=== PATIENT | male | born 1945 | race Caucasian/White ===

== ENCOUNTER 2017-02-17 08:29 | Outpatient (CLI) | payer MEDICARE, OTHER ==
[2017-02-17 09:24] LABS: eGFR (African) > 60; eGFR (Non-African) > 60
== END 2017-02-17 08:30 ==
LOC: LAB 08:29
PROVIDERS: ATTEND Family Medicine
DX: E11.9 Type 2 diabetes mellitus without complications (principal)
CPT/HCPCS: 36415; 80053; 83036

== ENCOUNTER 2017-09-19 10:20 | Outpatient (CLI) | payer MEDICARE, OTHER ==
[2017-09-19 11:05] LABS: eGFR (African) > 60; eGFR (Non-African) > 60
== END 2017-09-19 10:21 ==
LOC: LAB 10:20
PROVIDERS: ATTEND Family Medicine
DX: E11.9 Type 2 diabetes mellitus without complications (principal); E78.5 Hyperlipidemia, unspecified
CPT/HCPCS: 36415; 80053; 83036; 84443

== ENCOUNTER 2018-03-13 09:04 | Outpatient (CLI) | payer MEDICARE, OTHER ==
[2018-03-13 16:41] LABS: TOTAL PROTEIN 7.2 g/dL (6.0-8.5)
== END 2018-03-13 09:06 ==
LOC: LAB 09:04
PROVIDERS: ATTEND Family Medicine
DX: E11.9 Type 2 diabetes mellitus without complications (principal); E78.5 Hyperlipidemia, unspecified; E03.9 Hypothyroidism, unspecified; R50.9 Fever, unspecified
CPT/HCPCS: 36415; 80053; 80061; 82043; 83036; 84443; 86618; 86666; 86757

== ENCOUNTER 2018-09-27 09:24 | Outpatient (CLI) | payer MEDICARE, OTHER ==
[2018-09-27 09:57] LABS: eGFR (Non-African) > 60
== END 2018-09-27 09:25 ==
LOC: LAB 09:24
PROVIDERS: ATTEND Family Medicine
DX: E11.9 Type 2 diabetes mellitus without complications (principal)
CPT/HCPCS: 36415; 80053; 83036

== ENCOUNTER 2019-05-12 19:42 | Emergency (ER) | payer MEDICARE, OTHER ==
--- NOTE | 2019-05-12 20:33 | ED Physician Documentation ---
Syncope/Near Syncope - HISTORIAN Historian: patient - HPI Stated Complaint: Syncope Chief Complaint: Syncope Additional Information: Patient presents to ED with complaints of syncope today around 1300. Patient left his house after breakfast at 1000 to [employer]. Around 1300 patient states he think he passed out. He does not remember exactly what happened but realized he was bleeding and the tractor had went through the ditch. He had no symptoms leading up to the event. Patient reports he continued to [employer] until around 1630. Upon arrival to home his checked his blood sugar and it was 155. He ate dinner and began to have right flank pain so his made him come to the ER. He is diabetic and take metformin and glimepride daily. He is not on blood thinners. Witnessed: No Position at Time of Episode: sitting (on tractor) Symptoms Prior to Episode: none Character of Events(s): lost consciousness Duration of Loss of Consciousness: brief Symptoms after Event: breathing stopped, other (none) Location of Injury: head (left eye and mouth contusion) Associated Symptoms: feels back to normal, other (right flank pain) - ROS CONST: denies: fever EYES/ENT: none GI/: denies: diarrhea MS/SKIN/LYMPH: denies: joint pain NEURO/PSYCH: denies: confusion - PAST HX Cardiac Disease: none PE Risk Factors: none Other History: diabetes Type 2 Surgeries/Procedures: none Allergies/Adverse Reactions: Allergies Allergy/AdvReac Type Severity Reaction Status Date / Time No Known Drug Allergies Allergy Verified 05/12/19 20:23 - SOCIAL HX Smoking History: non-smoker Alcohol Use: none Drug Use: none - FAMILY HX Family History: none - VITAL SIGNS Vital Signs: Vital Signs Temp Pulse Resp BP Pulse Ox 99.8 F H 88 22 125/56 97 05/12/19 19:43 05/12/19 19:43 05/12/19 19:43 05/12/19 19:43 05/12/19 19:43 - REVIEWED ASSESSMENTS Nursing Assessment Reviewed: Yes Vitals Reviewed: Yes Progress - EKG/XRAY/CT EKG: NSR Comments: [address] elevation/changes ED Results Lab/Radiology - Lab Results Lab Results: Lab Results 05/12/19 05/12/19 05/12/19 20:50 20:50 20:50 WBC RBC Hgb Hct MCV MCH MCHC RDW Plt Count Neut % (Auto) Lymph % (Auto) Collier % (Auto) Eos % (Auto) Baso % (Auto) Neut # (Auto) Lymph # (Auto) Collier # (Auto) Eos # (Auto) Baso # (Auto) Sodium 140 mmol/L mmol/L (137-145) Potassium 4.4 mmol/L mmol/L (3.5-5.1) Chloride 103 mmol/L mmol/L (98-107) Carbon Dioxide 27 mmol/L mmol/L (22-30) BUN 20 mg/dL mg/dL (9-20) Creatinine 1.08 mg/dL mg/dL (0.66-1.25) Estimated Creat Clear 69 Est GFR ( Amer) > 60 (60 - ) Est GFR (Non-Af Amer) > 60 (60 - ) Glucose 165 mg/dL H mg/dL (74-106) Calcium 9.4 mg/dL mg/dL (8.4-10.2) Total Bilirubin 0.5 mg/dL mg/dL (0.2-1.3) AST 51 U/L H U/L (15-46) ALT 22 U/L U/L (13-69) Alkaline Phosphatase 46 U/L U/L (38-126) Troponin I < 0.012 ng/mL L ng/mL (0.012-0.034) NT-Pro-B Natriuret Pep 152.3 pg/mL H pg/mL (11.1-125.0) Total Protein 7.1 g/dL g/dL (6.3-8.2) Albumin 4.4 g/dL g/dL (3.5-5.0) TSH < 0.010 mIU/l L mIU/l (0.465-4.685) 05/12/19 20:50 WBC 11.10 K/ul K/ul (4.00-12.00) RBC 4.13 M/ul M/ul (3.90-5.20) Hgb 12.1 g/dL g/dL (12.0-18.0) Hct 35.8 % L % (37.0-53.0) MCV 87.0 fl fl (80.0-100.0) MCH 29.3 pg pg (28.0-34.0) MCHC 33.9 g/dL g/dL (30.0-36.0) RDW 12.8 % % (11.3-14.3) Plt Count 318 K/mm3 K/mm3 (130-400) Neut % (Auto) 78.0 % % (39.0-79.0) Lymph % (Auto) 13.3 % L % (16.0-50.0) Collier % (Auto) 7.4 % % (0.0-11.0) Eos % (Auto) 0.9 % % (0.0-6.8) Baso % (Auto) 0.4 % % (0.0-1.5) Neut # (Auto) 8.7 # k/uL H # k/uL (1.4-7.7) Lymph # (Auto) 1.5 # k/uL # k/uL (0.6-4.0) Collier # (Auto) 0.8 # k/uL # k/uL (0.0-0.9) Eos # (Auto) 0.1 # k/uL # k/uL (0.0-0.6) Baso # (Auto) 0.0 # k/uL # k/uL (0.0-0.5) Sodium Potassium Chloride Carbon Dioxide BUN Creatinine Estimated Creat Clear Est GFR ( Amer) Est GFR (Non-Af Amer) Glucose Calcium Total Bilirubin AST ALT Alkaline Phosphatase Troponin I NT-Pro-B Natriuret Pep Total Protein Albumin TSH - Radiology Radiology Impressions: Report Submission Date: May 12, 2019 9:46:45 PM CDT Patient Study Name: MINA BARONE Date: May 12, 2019 8:39:10 PM CDT Modality Type: DX Gender: M Description: CHEST 2VIEW : 47 Institution: [facility] Physician: KELLY BA Chest, 2 view History: Fall Findings: The heart size is normal. There is atherosclerosis of the aorta. The lungs are clear. There is no pleural effusion or pneumothorax identified. The osseous structures are normal. Impression: 1. No acute pulmonary disease. Electronically signed on May 12, 2019 9:46:45 PM CDT by: Ron Saldaña Report Submission Date: May 12, 2019 9:48:11 PM CDT Patient Study Name: MINA BARONE Date: May 12, 2019 9:06:11 PM CDT MRN: [id number] Modality Type: CT Gender: M Description: CT HEAD W/O : 47 Institution: [facility] Physician: KELLY BA CT Brain without Contrast History: Fall Technique: Transaxial CT was performed without contrast from the skull base to the vertex. Findings: Scattered bilateral white matter hypodensity is present, consistent with gliosis. Mild cerebral atrophy is present. The lateral ventricles are mildly dilated. No hemorrhage or edema-producing mass. The fourth ventricle is midline. The paranasal sinuses are clear. No skull fracture. The mastoid air cells are well developed and well aerated. Impression: 1. Mild cerebral atrophy and white matter gliosis. 2. No acute cerebral pathology. Electronically signed on May 12, 2019 9:48:11 PM CDT by: Ron Saldaña Report Submission Date: May 12, 2019 9:50:00 PM CDT Patient Study Name: MINA BARONE Date: May 12, 2019 8:53:15 PM CDT MRN: [id number] Modality Type: CT Gender: M Description: CT ABD/PEW W/O : 47 Institution: [facility] Physician: KELLY BA CT abdomen pelvis without contrast History: Abdominal pain, fall. Technique: Transaxial computed tomographic images of the abdomen pelvis were obtained without contrast according to standard protocol. Findings: The lung bases are clear. The lower ribs are intact. The liver gallbladder pancreas spleen and adrenal glands are normal. There is a left renal cyst present measuring 2.4 cm. No bowel wall thickening or dilation is present with scattered diverticular present in the colon. There is atherosclerosis of the aorta. No adenopathy present. The bladder is normal. There is no free fluid. The osseous structures of the pelvis are intact. There is mild degenerative change in lumbar spine. Impression: 1. No acute injury within limits of this noncontrast exam. 2. Additional findings include atherosclerosis, diverticulosis, left renal cyst, and lumbar spondylosis. Electronically signed on May 12, 2019 9:50:00 PM CDT by: Ron Saldaña - Orders Orders: ED Orders Category Date Time Status CHEST 2VIEW [RAD] Stat Exams 05/12/[address] ABD & PELVIS W/O CON Stat Exams 05/12/[address] BRAIN W/O CONTRAST Stat Exams 05/12/19 Ordered CBC/PLATELET/DIFF Routine Lab 05/12/19 20:50 Completed CMP Routine Lab 05/12/19 20:50 Completed NTBNP Stat Lab 05/12/19 20:50 Completed TROPONIN I Stat Lab 05/12/19 20:50 Completed TSH Stat Lab 05/12/19 20:50 Completed UA W MICRO [UA W/MICRO IF INDICATED] Routine Lab 05/12/19 20:37 Ordered EKG WITH COMPARISON Stat Ther 05/12/19 Ordered Syncope Physical Exam - Physical Exam General Appearance: no acute distress, alert EENT: PERRL, ecchymosis (left eye and right lower lip) Neck/Back: neck supple, non-tender, no carotid bruit Respiratory: no resp distress, chest non-tender, breath sounds normal CVS: reg rate & rhythm, heart sounds normal, equal pulses Abdomen: non-tender, no distention. No: tenderness Skin: warm/dry Extremities: non-tender, normal range of motion, no evidence of injury, no edema - Neuro/Psych Higher Functions: alert, oriented x3, no evidence of acute CVA, mood/affect nml Cranial Nerves: nml as tested Cerebellar: nml as tested Sensorimotor: nml motor response, nml sensory response, nml reflexes, nml gait Discharge Clincal Impression: Low serum thyroid stimulating hormone (TSH) Syncope Qualifiers: Syncope type: unspecified Qualified Code(s): R55 - Syncope and collapse Referrals: Maxi Gutierrez MD [Primary Care Provider] - 2 Days Additional Instructions: 1. Drink plenty of fluids to maintain proper hydration 2. Eat 3 meals daily. Do NOT skip meals 3. Hold Thyroid medication until you follow up with Dr. Gutierrez 4. Follow up with Dr. Gutierrez within 3 days. Discuss further evaluation for syncope (stress test, echocardiogram, holter heart monitor) 5. Return to the ER for new or worsening symptoms Condition: Stable Disposition: 01 HOME, SELF-CARE Decision to Admit: NO Date of Decison to Admit: 05/12/19 Decision Time: 21:59
[2019-05-12 20:59] LABS: BASOPHILS % 0.4 % (0.0-1.5); NEUTROPHILS # 8.7 # k/uL (1.4-7.7)
[2019-05-12 21:13] LABS: eGFR (Non-African) > 60
--- NOTE | 2019-05-12 22:09 | Diagnostic Imaging Report ---
KELLY BA [facility] [address] [facility] [address] [place], [place]. [address] Report Submission Date: May 12, 2019 9:50:00 PM CDT Patient Study Name: MINA BARONE Date: May 12, 2019 8:53:15 PM CDT MRN: [id number] Modality Type: CT Gender: M Description: CT ABD/PEW W/O : 47 Institution: [facility] Physician: KELLY BA CT abdomen pelvis without contrast History: Abdominal pain, fall. Technique: Transaxial computed tomographic images of the abdomen pelvis were obtained without contrast according to standard protocol. Findings: The lung bases are clear. The lower ribs are intact. The liver gallbladder pancreas spleen and adrenal glands are normal. There is a left renal cyst present measuring 2.4 cm. No bowel wall thickening or dilation is present with scattered diverticular present in the colon. There is atherosclerosis of the aorta. No adenopathy present. The bladder is normal. There is no free fluid. The osseous structures of the pelvis are intact. There is mild degenerative change in lumbar spine. Impression: 1. No acute injury within limits of this noncontrast exam. 2. Additional findings include atherosclerosis, diverticulosis, left renal cyst, and lumbar spondylosis. Electronically signed on May 12, 2019 9:50:00 PM CDT by: Ron CRAVEN
--- NOTE | 2019-05-12 22:10 | Diagnostic Imaging Report ---
KELLY BA [facility] [address] [facility] [place], [place]. [address] Report Submission Date: May 12, 2019 9:48:11 PM CDT Patient Study Name: MINA BARONE Date: May 12, 2019 9:06:11 PM CDT MRN: [id number] Modality Type: CT Gender: M Description: CT HEAD W/O : 47 Institution: [facility] Physician: KELLY BA CT Brain without Contrast History: Fall Technique: Transaxial CT was performed without contrast from the skull base to the vertex. Findings: Scattered bilateral white matter hypodensity is present, consistent with gliosis. Mild cerebral atrophy is present. The lateral ventricles are mildly dilated. No hemorrhage or edema-producing mass. The fourth ventricle is midline. The paranasal sinuses are clear. No skull fracture. The mastoid air cells are well developed and well aerated. Impression: 1. Mild cerebral atrophy and white matter gliosis. 2. No acute cerebral pathology. Electronically signed on May 12, 2019 9:48:11 PM CDT by: Ron Saldaña [facility]
--- NOTE | 2019-05-12 22:11 | Diagnostic Imaging Report ---
KELLY BA [facility] [address] [facility] [address] [address] Report Submission Date: May 12, 2019 9:46:45 PM CDT Patient Study Name: MINA BARONE Date: May 12, 2019 8:39:10 PM CDT Modality Type: DX Gender: M Description: CHEST 2VIEW : 47 Institution: [facility] Physician: KELLY BA Chest, 2 view History: Fall Findings: The heart size is normal. There is atherosclerosis of the aorta. The lungs are clear. There is no pleural effusion or pneumothorax identified. The osseous structures are normal. Impression: 1. No acute pulmonary disease. Electronically signed on May 12, 2019 9:46:45 PM CDT by: Ron CRAVEN
[2019-05-12 22:23] VITALS: BP 117/60
[2019-05-13 10:08] LABS: APPEARANCE,URINE CLEAR (CLEAR); COLOR,URINE YELLOW (YELLOW); OCCULT BLOOD,URINE NEGATIVE (NEGATIVE); PH URINE 5.5 (5.0 - 8.0); UROBILINOGEN URINE 0.2 Eu (0.2-1.0)
== END 2019-05-12 22:18 | disposition home or self-care (01) ==
LOC: ED 19:42
DX: R55 Syncope and collapse (principal)
CPT/HCPCS: 70450; 71046; 74176; 80053; 81002; 83880; 84443; 84484; 85025; S1016

== ENCOUNTER 2019-10-15 09:02 | Outpatient (CLI) | payer MEDICARE, OTHER ==
[2019-10-15 10:05] LABS: A1C 6.2 % (<5.7)
[2019-10-15 10:35] LABS: HDL 60 mg/dL (>40); eGFR (Non-African) > 60
== END 2019-10-15 09:07 ==
LOC: LAB 09:02
PROVIDERS: ATTEND Family Medicine
DX: E11.9 Type 2 diabetes mellitus without complications (principal); E78.5 Hyperlipidemia, unspecified
CPT/HCPCS: 36415; 80053; 80061; 83036; 84443